=== PATIENT | male | born 1985 ===

== ENCOUNTER 2019-07-17 16:15 | Emergency (ER) | payer MEDICAID ==
[~2019-07-17] VITALS: Ht 177.8 cm; Wt 87.4 kg
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
[2019-07-17] MEDS ORDERED: LIDOCAINE 1%-EPI 1:100K, 20ML ONE (16:43)
[2019-07-17 16:48] VITALS: BP 134/82
--- NOTE | 2019-07-17 16:49 | NUR ---
PT REPORTS WORSENING PAIN IN HEAD. PT REPORTS ANXIETY IS BECOMING SEVERE. PT VISIBLY RESTLESS.
[2019-07-17] MEDS ORDERED: LIDOCAINE 1%-EPI 1:100K, 20ML SQ ONE (17:00)
== END 2019-07-17 18:16 | disposition home or self-care (01) ==
LOC: ED 17:11
DX: S01.111A Laceration without foreign body of right eyelid and periocular area, initial encounter (principal); S09.90XA Unspecified injury of head, initial encounter; F17.200 Nicotine dependence, unspecified, uncomplicated; Y04.0XXA Assault by unarmed brawl or fight, initial encounter; Y93.89 Activity, other specified; Y92.009 Unspecified place in unspecified non-institutional (private) residence as the place of occurrence of the external cause; Y99.8 Other external cause status
CPT/HCPCS: 12051; 99284

== ENCOUNTER → 2019-07-18 | Outpatient (CLI) | payer MEDICAID | END | disposition home or self-care (01) | LOC: RAD 18:11 | PROVIDERS: ATTEND Internal Medicine | DX: S05.91XA Unspecified injury of right eye and orbit, initial encounter (principal); H05.231 Hemorrhage of right orbit; J34.89 Other specified disorders of nose and nasal sinuses; X58.XXXA Exposure to other specified factors, initial encounter; Y93.89 Activity, other specified; Y92.89 Other specified places as the place of occurrence of the external cause; Y99.8 Other external cause status | CPT/HCPCS: 70450; 70480 ==

== ENCOUNTER 2019-07-21 14:40 | Emergency (ER) | payer MEDICAID ==
[~2019-07-21] VITALS: Ht 177.8 cm; Wt 85.5 kg
[2019-07-21 14:43] VITALS: BP 133/84
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
== END 2019-07-21 15:25 | disposition home or self-care (01) ==
LOC: ED 14:54
DX: S01.111D Laceration without foreign body of right eyelid and periocular area, subsequent encounter (principal); X58.XXXD Exposure to other specified factors, subsequent encounter; F17.200 Nicotine dependence, unspecified, uncomplicated
CPT/HCPCS: 99281

== ENCOUNTER 2019-08-14 13:08 | Emergency (ER) | payer MEDICAID ==
[~2019-08-14] VITALS: Ht 177.8 cm; Wt 85.4 kg
[2019-08-14 13:10] VITALS: BP 184/101
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
== END 2019-08-14 14:38 | disposition home or self-care (01) ==
LOC: ED 13:27
DX: R00.0 Tachycardia, unspecified (principal); F15.10 Other stimulant abuse, uncomplicated
CPT/HCPCS: 93005; 99283